=== PATIENT | male | born 2000 | race Caucasian/White ===

== ENCOUNTER → 2022-03-14 09:14 | Outpatient (BNVA) | payer SELFPAY | PROVIDERS: Visit Provider Physician Assistant | DX: Z02.79 Encounter for issue of other medical certificate (principal) ==

== ENCOUNTER 2023-07-09 09:07 | Outpatient (AMB) | payer OTHER, SELFPAY ==
--- NOTE | 2023-07-09 09:15 | AM.OFFWIN_ITS ---
Intake Vital Signs 07/09/23 09:22 Height 6 ft Weight 176 lb 2 oz BMI 23.9 BP 116/78 Blood Pressure Location Lt brachial Position Sitting Pulse 108 H Pulse Source Pulse Oximeter Temp 98.9 F Temp Source Oral Pulse Oximetry (%) 98 Oxygen Delivery Method Room Air Intake Visit Reasons: [employer] Stuffy nose, Fever, body ache [phone] Intake Note: Pt is here today for body aches, chills bad cough and stuffy nose. Pt states symptoms started Sunday. Patient Tobacco Use Status: Never used Tobacco Allergies amoxicillin Allergy (Unverified 07/09/23 09:45) Abdominal Pain Medication List - Last Reconciled 07/09/23 by Mitchell Mckinley MD No Known Home Meds Do you need a note to return to daycare/school/sports/work: Yes HPI [employer] Stuffy nose, Fever, body ache [phone] HPI Details Patient presents for a sick visit. Reporting symptoms of sinus congestion, sore throat and difficulty swallowing. Low-grade fever. No family member is sick. No recent travel. Patient reports symptoms of malaise and f atigue. 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 Nonsmoker. [facility] Social History Patient Tobacco Use Status: Never used Tobacco Physical Exam Vital Signs: Last Vital Signs Temp 98.9 F 07/09/23 09:22 Pulse 108 H 07/09/23 09:22 BP 116/78 07/09/23 09:22 Pulse Ox 98 07/09/23 09:22 Oxygen Delivery Method Room Air 07/09/23 09:22 BMI result Body Mass Index 23.9 Const General: cooperative and healthy appearing Nutritional Appearance: well nourished Orientation/consciousness: patient oriented x3 Limitations: no limitations HEENT Head: Yes normal to inspection Eyes General: appearance normal, both eyes and all related structures Neck Neck: Yes normal visual inspection Chest Chest palpation & inspection: normal palpation of entire chest wall Resp Effort & Inspection: normal respiratory effort Neuro General: patient oriented x3 Assessment & Plan Assessment & Plan (1) Upper respiratory tract infection: Code(s): J06.9 - Acute upper respiratory infection, unspecified Plan: Antibiotics ordered. Increase fluid intake. Tylenol for aches and pains. If symptoms worsen, follow-up here for a recheck. Coding Level of Care Code Est Pt Level 3 (37231) Diagnoses Upper respiratory tract infection J06.9
[2023-07-09 09:22] VITALS: BP 116/78; PULSE 108; TEMP 37.2; O2SAT 98; BMI 23.9
== END 2023-07-09 09:46 | disposition home or self-care (01) ==
PROVIDERS: Visit Provider Internal Medicine
DX: J06.9 Acute upper respiratory infection, unspecified (principal)
CPT/HCPCS: 99213

== ENCOUNTER → 2024-02-13 11:12 | Outpatient (BNVA) | payer SELFPAY | PROVIDERS: Visit Provider Physician Assistant | DX: Z02.79 Encounter for issue of other medical certificate (principal) ==